=== PATIENT | male | born 1970 | race Two or more races ===

== ENCOUNTER 2017-05-29 19:43 | Emergency (ER) | payer MEDICAID ==
[~2017-05-29] VITALS: Ht 177.8 cm; Wt 79.4 kg
[~2017-05-29 19:43] MED LIST: [UNRECOGNIZED DRUG - OTHER]
[2017-05-29 20:14] VITALS: BP 114/74
--- NOTE | 2017-05-29 20:25 | Emergency Room Report ---
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 Patient reportedly had 4 minute seizure as witnessed by family members, generalized tonic-clonic, had a post ictal phase. Patient does not recall the event but states that he believes he fainted. Patient is noncompliant with his medications, states that here he takes too many medications for his HIV. Last CD4 count is unknown. Patient denies any fever chills nausea vomiting or neck pain. Patient states that for 4 days he has had a migraine. Bilateral throbbing, no photophobia or phonophobia, no nausea vomiting. Patient states he has had chronic migraine for many years even before they found toxoplasmosis, states he last went to [facility] few mos ago who treated him for ENGLISH in ED and discharged him. States this headache feels similar to his other headaches Denies tongue biting or bowel bladder incontinence Allergies: Coded Allergies: No Known Allergies (Unverified , 05/29/17) Patient History Past Medical History: see triage record Past Surgical History: none Pertinent Family History: none Reviewed Nursing Documentation: PMH: Agreed, PSxH: Agreed Review of Systems All Other Systems: negative except mentioned in HPI Physical Exam Vital Signs Date Time Temp Pulse Resp B/P (MAP) Pulse Ox O2 Delivery O2 Flow Rate FiO2 05/29/17 19:30 98.2 64 16 125/76 99 Room Air Sp02 EP Interpretation: reviewed, normal General Appearance: normal inspection, well appearing, no apparent distress, alert, GCS 15, non-toxic Head: normocephalic, atraumatic Eyes: bilateral eye normal inspection, bilateral eye PERRL, bilateral eye EOMI ENT: normal ENT inspection, normal pharynx, normal voice, moist mucus membranes Neck: normal inspection, full range of motion, supple Respiratory: normal inspection, lungs clear, normal breath sounds, no respiratory distress, no retraction, no wheezing, speaking full sentences, chest symmetrical Cardiovascular #1: normal inspection, regular rate, rhythm, no edema, normal capillary refill Cardiovascular #2: 2+ radial (R), 2+ radial (L) Gastrointestinal: normal inspection, non tender, soft, non-distended, no guarding Genitourinary: no CVA tenderness Musculoskeletal: normal inspection, back normal, normal range of motion, non- tender Neurologic: normal inspection, alert, oriented x3, responsive, manager billing III-XII nml as tested, motor strength/tone normal, sensory intact, normal gait, speech normal Psychiatric: normal inspection, judgement/insight normal, memory normal Skin: normal inspection, normal color, no rash, warm/dry, well hydrated, normal turgor Medical Decision Making Diagnostic Impression: Primary Impression: Seizure disorder Additional Impression: Headache ER Course 39-year-old male, HIV positive, history of toxoplasmosis, presenting with seizure DDX: Toxoplasmosis, other lesion Primary seizure, triggered by infection UTI/PNA vs. dehydration vs. medication non compliance Electrolyte disturbance: hypoglycemia vs. hyponatremia vs. hypocalcemia vs. hypomagnesemia Cardiac: Arrythmia Intracranial pathology: intracranial bleed, stroke Plan: Glucose is normal EKG, Labs CT head ER course: Patient has been monitored during ED stay, HD stable Given pain meds for ENGLISH has remained aox4, no neurological signs no nuchal rigidity conversing appropriately and remains nontoxic labs are unremarkable except mild leukopenia 4.5 Please note that this Emergency Department Report was dictated using [employer] operator technology software, occasionally this can lead to erroneous entry secondary to interpretation by the dictation equipment. EKG Diagnostic Results EP Interpretation: Yes Rate: normal Rhythm: NSR ST Segments: T-wave flattening in aVL ASA given to patient: No Rhythm Strip EP Interpretation: Yes Rate: 71 Rhythm: NSR, no PVCs, no ectopy Chest X-ray CXR: Ordered: Yes 1 view Indication: Chest pain EP interpretation: Yes Interpretation: No consolidation, no effusion, no PTX, no acute cardiopulmonary disease Impression: No acute disease Electronically signed by Jason Le MD Signed out to Dr. Bucio 47-year-old male with history of HIV on treatment, history of toxoplasmosis more than 10 years ago, seizure disorder noncompliant with medications presenting with headache and seizure Pending CT head Given Wilner Pending symptom control of headache Patient otherwise appears very well, if CT negative, DC Laboratory Tests Test 05/29/17 20:10 05/29/17 21:00 White Blood Count 4.5 K/UL (4.8-10.8) L Red Blood Count 4.98 M/UL (4.70-6.10) Hemoglobin 15.0 G/DL (14.2-18.0) Hematocrit 47.7 % (42.0-52.0) Mean Corpuscular Volume 96 FL (80-99) Mean Corpuscular Hemoglobin 30.1 PG (27.0-31.0) Mean Corpuscular Hemoglobin Concent 31.4 G/DL (32.0-36.0) L Red Cell Distribution Width 10.6 % (11.6-14.8) L Platelet Count 173 K/UL (150-450) Mean Platelet Volume 6.7 FL (6.5-10.1) Neutrophils (%) (Auto) 68.0 % (45.0-75.0) Lymphocytes (%) (Auto) 25.1 % (20.0-45.0) Monocytes (%) (Auto) 5.8 % (1.0-10.0) Eosinophils (%) (Auto) 0.4 % (0.0-3.0) Basophils (%) (Auto) 0.9 % (0.0-2.0) Sodium Level 140 MMOL/L (136-145) Potassium Level 4.5 MMOL/L (3.5-5.1) Chloride Level 104 MMOL/L (98-107) Carbon Dioxide Level 24 MMOL/L (21-32) Anion Gap 12 mmol/L (5-15) Blood Urea Nitrogen 15 mg/dL (7-18) Creatinine 1.2 MG/DL (0.55-1.30) Estimate Glomerular Filtration Rate > 60 mL/min (>60) Glucose Level 81 MG/DL (74-106) Lactic Acid Level 0.90 mmol/L (0.66-2.22) Calcium Level 9.8 MG/DL (8.5-10.1) Total Bilirubin 0.5 MG/DL (0.2-1.0) Aspartate Amino Transferase (AST) 21 U/L (15-37) Alanine Aminotransferase (ALT) 26 U/L (12-78) Alkaline Phosphatase 70 U/L (46-116) Creatine Kinase MB 0.5 NG/ML (0.0-3.6) Total Protein 9.5 G/DL (6.4-8.2) H Albumin 3.9 G/DL (3.4-5.0) Globulin 5.6 g/dL Albumin/Globulin Ratio 0.7 (1.0-2.7) L Urine Color Yellow Urine Appearance Clear Urine pH 6 (4.5-8.0) Urine Specific [place] 1.020 (1.005-1.035) Urine Protein 1+ (NEGATIVE) H Urine Glucose (UA) Negative (NEGATIVE) Urine Ketones 4+ (NEGATIVE) H Urine Occult Blood 1+ (NEGATIVE) H Urine Nitrite Negative (NEGATIVE) Urine Bilirubin Negative (NEGATIVE) Urine Urobilinogen 4 MG/DL (0.0-1.0) H Urine Leukocyte Esterase 2+ (NEGATIVE) H Urine RBC 5-10 /HPF (0 - 0) H Urine WBC 0-2 /HPF (0 - 0) Urine Squamous Epithelial Cells None /LPF (NONE/OCC) Urine Bacteria Occasional /HPF (NONE) Urine Mucus Many /LPF (NONE/OCC) H CT/MRI/US Diagnostic Results CT/MRI/US Diagnostic Results : Imaging Test Ordered: CT Head wih IV contrast Impression Impression: Negative for acute intracranial bleed, mass effect, or contrast enhancing lesion Foci of encephalomalacia in the right caudate head region and left cerebellum, 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 Advanced chronic ischemic change can also give this appearance This agrees with the preliminary interpretation provided overnight by [facility]. Per radiology report Last Vital Signs Date Time Temp Pulse Resp B/P (MAP) Pulse Ox O2 Delivery O2 Flow Rate FiO2 05/29/17 20:14 98.2 67 21 114/74 99 Room Air Scripts Levetiracetam (KEPPRA) 500 Mg Tablet 500 MG ORAL EVERY 12 HOURS, #60 TAB 0 Refills Prov: Lamont Bucio 05/29/17 Jason Le M.D. May 29, 2017 20:25
[2017-05-29 20:56] LABS: BASOPHILS % (AUTO) 0.9 % (0.0-2.0); EOSINOPHILS % (AUTO) 0.4 % (0.0-3.0); LYMPHOCYTES % (AUTO) 25.1 % (20.0-45.0); MEAN CORPUSCULAR HEMOGLOBIN 30.1 PG (27.0-31.0); MEAN CORPUSCULAR HGB CONC 31.4 G/DL (32.0-36.0); MEAN CORPUSCULAR VOLUME 96 FL (80-99); MEAN PLATELET VOLUME 6.7 FL (6.5-10.1); MONOCYTES % (AUTO) 5.8 % (1.0-10.0); PLATELET COUNT 173 K/UL (150-450); RED BLOOD COUNT 4.98 M/UL (4.70-6.10); RED CELL DISTRIBUTION WIDTH 10.6 % (11.6-14.8); WHITE BLOOD COUNT 4.5 K/UL (4.8-10.8)
[2017-05-29 21:22] LABS: APPEARANCE,URINE CLEAR; KETONES,URINE 4+ (NEGATIVE); LEUKOCYTE ESTERASE ,URINE 2+ (NEGATIVE); NITRITE,URINE NEGATIVE (NEGATIVE); PH,URINE 6 (4.5-8.0); PROTEIN,URINE 1+ (NEGATIVE); UROBILINOGEN,URINE 4 MG/DL (0.0-1.0)
[2017-05-29 21:29] LABS: ALANINE AMINOTRANSFERASE 26 U/L (12-78); ALBUMIN/GLOBULIN RATIO 0.7 (1.0-2.7); ANION GAP 12 mmol/L (5-15); ASPARTATE AMINO TRANSFERASE 21 U/L (15-37); CALCIUM 9.8 MG/DL (8.5-10.1); CARBON DIOXIDE 24 MMOL/L (21-32); CHLORIDE 104 MMOL/L (98-107); CKMB 0.5 NG/ML (0.0-3.6); CREATININE 1.2 MG/DL (0.55-1.30); GLOMERULAR FILTRATION RATE > 60 mL/min (>60); POTASSIUM 4.5 MMOL/L (3.5-5.1); SODIUM 140 MMOL/L (136-145); TOTAL PROTEIN 9.5 G/DL (6.4-8.2)
[2017-05-29 21:29] LABS: BACTERIA,URINE OCCASIONAL /HPF; MUCUS,URINE MANY /LPF (NONE/OCC); WBC,URINE 0-2 /HPF (0 - 0)
[2017-05-29] MEDS ORDERED: levETIRAcetam 1,500 MG in D5W 95 ML IVPB ONE (22:00)
[2017-05-29] MEDS ORDERED: levETIRAcetam 500mg vial IV ONE (22:05)
[2017-05-29 23:03] VITALS: BP 116/80
[2017-05-29] MEDS ORDERED: KEPPRA500 M4 ORAL (23:14)
[2017-05-29 23:44] VITALS: BP 116/80
--- NOTE | 2017-05-30 09:43 | Diagnostic Imaging Report ---
Indications: Seizures, history of HIV Technique: IV administration nonionic contrast . Spiral acquisitions obtained through the brain. Post contrast ministration. Angled axial and coronal 5 x 5 mm slices were reconstructed. Total dose length product 2897 mGycm. CTDI vol(s) 70, 16, 132, 70 mGy. Dose reduction achieved using automated exposure control Comparison: None Findings: There is mild enlargement of the ventricles and extra axial CSF spaces. Focal area of encephalomalacia is seen in the right caudate head extending into the coronal radiata.. Extensive periventricular deep white matter low-attenuation is seen bilaterally. There is an old focus of encephalomalacia in the left cerebellar hemisphere peripherally. No acute intracranial hemorrhage or edema, mass effect or midline shift. No unusual contrast enhancement is demonstrated. There is questionably a cavum septum pellucidum. The sinuses are clear. The mastoids are clear. The calvarium is intact. 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 Advanced chronic ischemic change can also give this appearance This agrees with the preliminary interpretation provided overnight by [facility]. The CT scanner at [facility] is accredited by the [employer] and the scans are performed using protocols designed to limit radiation exposure to as low as reasonably achievable to attain images of sufficient resolution adequate for diagnostic evaluation.
--- NOTE | 2017-05-30 11:45 | Diagnostic Imaging Report ---
Indication: Chest pain, seizures Technique: One view of the chest Comparison: none Findings: Lungs and pleural spaces are clear. Heart size is normal. Impression: No acute process
--- NOTE | 2017-05-30 15:00 | Cardiology Report ---
APPROVED REPORT EKG Measurement Heart [id number] Normal sinus rhythm with sinus arrhythmia Septal infarct, age undetermined Abnormal ECG
== END 2017-05-29 23:44 | disposition home or self-care (01) ==
LOC: EDBD 19:43 → EMR 20:20
DX: G40.909 Epilepsy, unspecified, not intractable, without status epilepticus (principal); R51 Headache
CPT/HCPCS: 36415; 70460; 71010; 80053; 81003; 82553; 83605; 85025; 87040; 93005; 96361; 96374; 99284; J1953; Q9967